=== PATIENT | female | born 1980 | race Caucasian/White ===

== ENCOUNTER 2021-03-02 21:19 | Emergency (ER) | payer MEDICAID, OTHER ==
[~2021-03-02] VITALS: Ht 160 cm; Wt 61.2 kg
[2021-03-02 21:39] VITALS: BP 118/88
== END 2021-03-03 04:24 | disposition left against medical advice (07) ==
LOC: ER 21:19
DX: R22.0 Localized swelling, mass and lump, head (principal); R11.0 Nausea; Z53.21 Procedure and treatment not carried out due to patient leaving prior to being seen by health care provider